=== PATIENT | female | born 1955 | race Hispanic/Latino ===

== ENCOUNTER 2018-08-16 16:58 | Emergency (ER) | payer MEDICARE, OTHER ==
[2018-08-16] MEDS ORDERED: METHYLPREDNISOLONE SOD SUCC 40MG/ML 1ML ONE (18:14)
[2018-08-16 18:18] LABS: BASOPHILS % (AUTO) 0.8 % (0.0-5.0); EOSINOPHILS % (AUTO) 0.2 % (0.0-8.0); HEMATOCRIT 36.1 % (36-48); MEAN CORPUSCULAR HEMOGLOBIN 30.8 pg (27.0-33.0); MEAN CORPUSCULAR HGB CONC 34.1 g/dL (32.0-36.0); MEAN CORPUSCULAR VOLUME 90.4 fL (79-99); MONOCYTES % (AUTO) 8.5 % (3.0-13.0); NEUTROPHILS % (AUTO) 82.5 % (40.0-77.0); PLATELET COUNT (AUTO) 262 K/uL (130-400); RED BLOOD CELL COUNT(AUTO) 3.99 MIL/uL (4.00-5.50); RED CELL DISTRIBUTION WIDTH 14.1 % (11.0-15.5); WHITE BLOOD COUNT (AUTO) 7.4 K/uL (4.8-10.8)
[2018-08-16] MEDS ORDERED: ALBUTEROL SULFATE 0.083% 2.5 MG/3 ML INH IH ONE (18:21)
[2018-08-16 18:44] LABS: CREATININE 1.1 mg/dL (0.5-1.5); POTASSIUM 4.1 mmol/L (3.5-5.1)
[2018-08-16 18:47] LABS: INR 1.02 (0.85-1.15); PARTIAL THROMBOPLASTIN TIME 29.6 SEC (26.3-35.5); PROTHROMBIN TIME 10.7 SEC (9.6-11.6)
[2018-08-16 18:50] LABS: ALBUMIN 3.4 g/dL (3.5-5.0); BILIRUBIN,TOTAL 0.3 mg/dL (0.2-1.0); TOTAL PROTEIN, SERUM 7.2 g/dL (6.0-8.3)
== END 2018-08-16 19:53 | disposition home or self-care (01) ==
LOC: EDH 16:58
DX: J20.9 Acute bronchitis, unspecified (principal); E11.9 Type 2 diabetes mellitus without complications; Z88.2 Allergy status to sulfonamides; Z88.6 Allergy status to analgesic agent; Z91.041 Radiographic dye allergy status
CPT/HCPCS: 36415; 71046; 80053; 83690; 85025; 85610; 85730; 94640; 96372; 99284; J2920

== ENCOUNTER 2023-03-17 14:51 | Emergency (ER) | payer MEDICARE, OTHER ==
[~2023-03-17] VITALS: Ht 172.7 cm; Wt 90.7 kg
[2023-03-17 15:23] VITALS: BP 110/62; PULSE 76; RESP 17
[2023-03-17] MEDS ORDERED: CYCL10TA16 PO (16:46)
[2023-03-17] MEDS ORDERED: IBUP-2070 PO (16:46)
[2023-03-17] MEDS ORDERED: CYCLOBENZAPRINE HCL 10 MG TABLET PO ONE (17:00)
== END 2023-03-17 17:16 | disposition home or self-care (01) ==
LOC: EDH 14:53
DX: S83.91XA Sprain of unspecified site of right knee, initial encounter (principal); E11.9 Type 2 diabetes mellitus without complications; Z88.2 Allergy status to sulfonamides; Z88.5 Allergy status to narcotic agent; Z88.8 Allergy status to other drugs, medicaments and biological substances; Z90.89 Acquired absence of other organs; X58.XXXA Exposure to other specified factors, initial encounter; Y93.K1 Activity, walking an animal; Y92.89 Other specified places as the place of occurrence of the external cause; Y99.8 Other external cause status
CPT/HCPCS: 29505; 73562

== ENCOUNTER → 2024-08-12 | Outpatient (CLI) | payer MEDICARE ==
[~2024-08-12] MED LIST: CYCL10TA16 PO; IBUP-2070 PO
--- NOTE | 2024-08-12 08:55 | HMCIMG ---
Exam Type: Complete abdominal ultrasound with hepatic color-flow Doppler Clinical Information: Pain Comparison: None Findings: The liver shows fatty infiltration and is enlarged, measuring 16.2 and is otherwise unremarkable. Doppler evaluation shows patent portal and hepatic veins. The gallbladder shows no significant abnormalities. Specifically, no calculi are seen. No bile duct dilatation is noted. The gallbladder wall measures 2 mm. The common bile duct measures 5 mm. The right kidney measures 10.1 x 5.1 cm. The left kidney measures 9.6 x 3.1 cm. The kidneys show no hydronephrosis or calculi, masses or other abnormalities. The pancreas is unremarkable. The spleen is unremarkable. The aorta and inferior vena cava show no significant abnormalities. IMPRESSION: FATTY LIVER INFILTRATION AND HEPATOMEGALY. OTHERWISE NORMAL ABDOMINAL ULTRASOUND.
== END | disposition home or self-care (01) ==
LOC: RAH 07:58
PROVIDERS: ATTEND Internal Medicine
DX: K76.0 Fatty (change of) liver, not elsewhere classified (principal); R10.11 Right upper quadrant pain
CPT/HCPCS: 76700